=== PATIENT | female | born 1990 | race Caucasian/White ===

== ENCOUNTER → 2018-10-13 | Outpatient (CLI) | payer BC ==
--- NOTE | 2018-10-14 10:44 | RAD ---
CHEST PA LATERAL Clinical indications: DYSPNEA AND SHORTNESS OF BREATH COMPARISON: None available. Findings: Hyperinflation is apparent which may be seen with COPD. There is a nodular infiltrate within the left midlung zone seen in the frontal view only. No pleural effusion or pneumothorax is seen.. The heart size, pulmonary vasculature, mediastinum and both ebony are unremarkable. The osseous structures appear intact. Impression: Nodular infiltrate of the left midlung zone. Electronically signed by: Lux Martin MD (10/14/2018 10:40 AM) [facility]
== END | disposition home or self-care (01) ==
LOC: RAD 09:52
PROVIDERS: ATTEND Internal Medicine Pulmonary Disease
DX: R91.8 Other nonspecific abnormal finding of lung field (principal)
CPT/HCPCS: 71046